=== PATIENT | female | born 1995 | race Caucasian/White ===

== ENCOUNTER 2024-06-07 09:51 | Emergency (ER) | payer BC ==
[~2024-06-07] VITALS: Ht 165.1 cm; Wt 75.0 kg
[2024-06-07 10:04] VITALS: TEMP 98.1
[2024-06-07] MEDS ORDERED: magnesium sulf-water 2g/50mL 50 ML IV ONE (10:20)
[2024-06-07] MEDS: ipratropium/albuterol 3ml nebule NEB ONE (10:29)
[2024-06-07 10:30] VITALS: PULSE 110; PULSE 116; RESP 18; RESP 19
[2024-06-07] MEDS: magnesium sulf-water 2g/50mL 50 ML IV ONE (10:42)
[2024-06-07 10:55] LABS: BASOPHILS % (AUTO) 0.5 % (0-1); EOSINOPHILS # (AUTO) 0.1 X10'3 (0-0.9); EOSINOPHILS % (AUTO) 1.3 % (0-6); HEMATOCRIT 43.3 % (35.0-45.0); HEMOGLOBIN 14.5 g/dl (12.0-16.0); LYMPHOCYTES # (AUTO) 1.9 X10'3 (1.1-4.8); LYMPHOCYTES % (AUTO) 27.7 % (21-51); MEAN CORPUSCULAR HEMOGLOBIN 31.3 PG (27.0-31.0); MEAN CORPUSCULAR HGB CONC 33.4 g/dL (33.0-36.5); MEAN CORPUSCULAR VOLUME 93.6 FL (78-98); MEAN PLATELET VOLUME 7.5 FL (7.4-10.4); MONOCYTES # (AUTO) 0.5 X10'3 (0-0.9); MONOCYTES % (AUTO) 7.2 % (2-12); NEUTROPHILS # (AUTO) 4.3 X10'3 (1.8-7.7); NEUTROPHILS % (AUTO) 63.3 % (42-75); PLATELET COUNT 276 X10'3 (140-440); RED BLOOD COUNT 4.63 X10'6 (4.20-5.60); RED CELL DISTRIBUTION WIDTH 13.4 % (11.5-14.5); WHITE BLOOD COUNT 6.9 X10'3 (4.5-11.0)
[2024-06-07] MEDS: methylPREDNISolone sod succ 125mg/2ml vial IV ONE (11:00)
[2024-06-07 11:05] LABS: ANION GAP 5 (8-16); BLOOD UREA NITROGEN 5 MG/DL (7-18); BUN/CREATININE RATIO 6.2 (10.0-20.0); CALCIUM 8.6 MG/DL (8.5-10.1); CHLORIDE 104 MMOL/L (99-107); CREATININE 0.81 MG/DL (0.40-0.90); GLUCOSE 74 MG/DL (70-104); POTASSIUM 3.4 MMOL/L (3.5-5.1); SODIUM 140 MMOL/L (135-145); eCRCL 93 ML/MIN; eGFR 84 ML/MIN
[2024-06-07] MEDS ORDERED: IPRA3AMP31 NEB (11:38)
[2024-06-07 11:56] VITALS: BP 117/68; PULSE 87; RESP 18; O2SAT 98
[2024-06-07] MEDS ORDERED: PRED50TA PO (11:59)
== END 2024-06-07 12:13 | disposition home or self-care (01) ==
LOC: ER 09:51
DX: J45.901 Unspecified asthma with (acute) exacerbation (principal); R06.03 Acute respiratory distress
CPT/HCPCS: 36415; 71045; 80048; 85025; 94640; 96365; 96375; 99291; J2919; J3490; J7030; 94760